=== PATIENT | male | born 1980 | race Two or more races ===

== ENCOUNTER 2024-12-26 15:55 | Emergency (ER) | payer MEDICAID, OTHER ==
[~2024-12-26] VITALS: Ht 180.3 cm; Wt 129.0 kg
[2024-12-26 16:00] VITALS: BP 138/94; PULSE 77; RESP 19; TEMP 98.1; O2SAT 95
--- NOTE | 2024-12-26 16:47 | ED.PDOC ---
History of Present Illness HPI Comments 44 year old male PMHx HTN, DM, HLD presents to the ED with a chief complaint of medication refill onset today (12/26/24). Patient states he had 1st PCP appointment, was given prescription for HTN, DM, HLD but was not prescribed Suboxone. He took last dose this morning 12mg. Patient's PCP will not prescribe until medical records are obtained. Denies fever, chills, nausea, vomiting, diarrhea, abdominal pain, chest pain, dizziness, headache. No other symptoms or modifying factors present at this time. Chief Complaint: Back Pain Time Seen by MD: 16:35 Reviewed Notes: Medications, Allergies Allergies: Coded Allergies: NO KNOWN ALLERGIES (Unverified , 12/26/24) Information Source: Patient Mode of Arrival: Ambulatory Severity: Moderate Timing: Hours Duration: Since onset Prehospital treatment: None Medication Refill: Ran out of Medication, For: Other (suboxone) Past Medical History PAST MEDICAL HISTORY: DM, High Lipids, HTN Surgical History: Denies all surgeries Family History Family History: Reviewed,noncontributory to illness, No family hx of Cancer, No family hx of DM, No family hx of Heart henry, No family hx of HTN, No family hx ofKidney henry, No family hx of Liver henry, No family hx of Lung henry, No family hx of Stroke Social History Smoker: Non-Smoker Alcohol: Denies ETOH Use Drugs: Denies Drug Use Lives In: Home Constitutional: denies: chills, diaphoresis, fatigue, fever, malaise, sweats, weakness, others EENTM: denies: blurred vision, double vision, ear bleeding, ear discharge, ear drainage, ear pain, ear ringing, eye pain, eye redness, hearing loss, mouth pain, mouth swelling, nasal discharge, nose bleeding, nose congestion, nose pain, photophobia, tearing, throat pain, throat swelling, voice changes, others Respiratory: denies: cough, hemoptysis, orthopnea, SOB at rest, shortness of breath, SOB with excertion, stridor, wheezing, others Cardiovascular: denies: chest pain, dizzy spells, diaphoresis, Dyspnea on exertion, edema, irregular heart beat, left arm pain, lightheadedness, palpitations, PND, syncope, others Gastrointestinal: denies: abdomen distended, abdominal pain, blood streaked bowels, constipated, diarrhea, dysphagia, difficulty swallowing, hematemesis, melena, nausea, poor appetite, poor fluid intake, rectal bleeding, rectal pain, vomiting, others Genitourinary: denies: burning, dysuria, flank pain, frequency, hematuria, incontinence, penile discharge, penile sore, pain, testicle pain, testicle swelling, urgency, others Neurological: denies: dizziness, fainting, headache, left sided numbness, left sided weakness, numbness, paresthesia, pre-existing deficit, right sided numbness, right sided weakness, seizure, speech problems, tingling, tremors, weakness, others Musculoskeletal: denies: back pain, gout, joint pain, joint swelling, muscle pain, muscle stiffness, neck pain, others Integumetry: denies: bruises, change in color, change in hair/nails, dryness, laceration, lesions, lumps, rash, wounds, others Allergic/Immunocompromised: denies: Difficulty Healing, Frequent Infections, Hives, Itching, others Hematologic/Lymphatic: denies: anemia, blood clots, easy bleeding, easy bruising, swollen glands, others Endocrine: denies: excessive hunger, excessive sweating, excessive thirst, excessive urination, flushing, intolerance to cold, intolerance to heat, unexplained weight gain, unexplained weight loss, others Psychiatric: denies: anxiety, bipolar disorder, depression, hopeless, panic disorder, schizophrenia, sleepless, suicidal, others All Other Systems: Reviewed and Negative Physical Exam General Appearance: No Apparent Distress, Normal HEENT: Normal ENT Inspection, Pharynx Normal, TMs Normal Neck: Full Range of Motion, Non-Tender, Normal, Normal Inspection Respiratory: Chest Non-Tender, Lungs Clear, No Accessory Muscle Use, No Respiratory Distress, Normal Breath Sounds Cardiovascular: No Edema, No JVD, No Murmur, No Gallop, Normal Peripheral Pulses, Regular Rate/Rhythm Breast Exam: Deferred Gastrointestinal: No Organomegaly, Non Tender, No Pulsatile Mass, Normal Bowel Sounds, Soft Genitalia: Deferred Pelvic: Deferred Rectal: Deferred Extremities: No calf tenderness, Normal capillary refill, Normal inspection, Normal range of motion, Non-tender, No pedal edema Musculoskeletal : Apperance: Normal Neurologic: Alert, tack maker II-XII nml as Tested, No Motor Deficits, Normal Affect, Normal Mood, No Sensory Deficits Cerebellar Function: Normal Reflexes: Normal Skin: Dry, Normal Color, Warm Lymphatic: No Adenopathy Was a procedure done? Was a procedure done?: No Differential Dx Considerations may include: Med refill X-Ray, Labs, Meds, VS Vital Signs Date Time Temp Pulse Resp B/P (MAP) Pulse Ox O2 Delivery O2 Flow Rate FiO2 12/26/24 16:00 98.1 77 19 138/94 95 98.1 X-Ray, Labs, Meds, VS Comment Imaging was reviewed by this provider, there is no obvious pathological or acute disease process. Pending radiology review Labs were reviewed by this provider, no abnormalities Vital signs reviewed by this provider, clinically stable Time of 1ST Reevaluation: 17:05 Reevaluation 1ST: Unchanged Patient Education/Counseling: Diagnosis, Treatment, Prognosis, Need For Follow Up (Follow up with PCP/pain management next available appointment) Family Education/Counseling: No Family Present SEPSIS Sepsis Screen Date sepsis recognized/suspect: Dec 26, 2024 Time Sepsis recognized/suspect: 1600 Recent Procedure: No On Antibiotic Therapy: No Respiratory Rate >20: No Heart Rate >90: No Temp<36 C (96.8 F) or >38.3 C: No SBP <90 or MAP <65 mmHG: No New Acute Mental Status Change: No Is the patient on CPAP, BIPAP,: No Vital Signs Date Time Temp Pulse Resp B/P (MAP) Pulse Ox O2 Delivery O2 Flow Rate FiO2 12/26/24 16:00 98.1 77 19 138/94 95 98.1 Departure 1 Departure Time of Disposition: 17:50 Impression: Primary Impression: Encounter for monitoring Suboxone maintenance therapy Disposition: HOME / SELF CARE / HOMELESS Condition: Fair e-Prescriptions Buprenorphine Hcl-Naloxone Hcl (Suboxone) 1 Mis Mis 1 STRIP SL DAILY, #30 STRIP Prov: JAQUELINE CHRISTIAN 12/26/24 Discharged With: Self Critical Care Note Critical Care Time?: No Stability Stability form required: No Heart Score Heart Score: Heart Score Response (Comments) Value History N/A 0 EKG N/A 0 Age N/A 0 Risk Factors N/A 0 Troponin N/A 0 Total 0 I personally scribed for JAQUELINE CHRISTIAN ([email or web address]) on 12/26/24 at 16:47. Electronically submitted by Gisel Prieto ([email or web address]). JAQUELINE CHRISTIAN [facility] Dec 26, 2024 16:47
[2024-12-26] MEDS ORDERED: BUPR8MIS SL (17:52)
== END 2024-12-26 18:10 | disposition home or self-care (01) ==
LOC: ER 15:55
DX: Z51.81 Encounter for therapeutic drug level monitoring (principal); E11.9 Type 2 diabetes mellitus without complications; E78.5 Hyperlipidemia, unspecified; I10 Essential (primary) hypertension; Z76.0 Encounter for issue of repeat prescription

== ENCOUNTER 2025-02-06 15:57 | Emergency (ER) | payer MEDICAID ==
[~2025-02-06] VITALS: Ht 180.3 cm; Wt 121.8 kg
[~2025-02-06 15:57] MED LIST: BUPR8MIS SL
[2025-02-06 16:03] VITALS: BP 140/90; PULSE 78; RESP 16; TEMP 98.2; O2SAT 97
--- NOTE | 2025-02-06 16:43 | ED.PDOC ---
History of Present Illness HPI Comments 44 y/o M, with PMHx of HTN, HLD, and DM, opiate addiction (on Suboxone therapy) presents to the ED for CC of med-refill. Patient reports, that he has been unable to refill his prescription on Suboxone d/t currently not having a Substance Abuse Provider. Patient relays, that he has set-up an appointment to meet with a provider tomorrow (02/07/25). Patient denies agitation, anxiety, restlessness, or mood changes. No other symptoms or modifying factors are present at this time. Chief Complaint: Medical Clearance Time Seen by MD: 16:30 Allergies: Coded Allergies: NO KNOWN ALLERGIES (Unverified , 12/26/24) Home Meds Active Scripts Buprenorphine Hcl-Naloxone Hcl (Suboxone) 1 Mis Mis, 1 STRIP SL DAILY for 7 Days, #7 STRIP Prov:ANTHONY CHRISTIAN MD 02/06/25 Buprenorphine Hcl-Naloxone Hcl (Suboxone) 1 Mis Mis, 1 STRIP SL DAILY, #30 STRIP Prov:JAQUELINE MONTERO 12/26/24 Mode of Arrival: Ambulatory Timing: Days Prehospital treatment: None Medication Refill: Ran out of Medication Past Medical History PAST MEDICAL HISTORY: DM, High Lipids, HTN Surgical History: Denies all surgeries Family History Family History: Reviewed,noncontributory to illness, No family hx of Cancer, No family hx of DM, No family hx of Heart henry, No family hx of HTN, No family hx ofKidney henry, No family hx of Liver henry, No family hx of Lung henry, No family hx of Stroke Social History Smoker: Non-Smoker Alcohol: Denies ETOH Use Drugs: Denies Drug Use, Other (Prior opiate abuse, on Suboxone) Lives In: Home Constitutional: denies: chills, diaphoresis, fatigue, fever, malaise, sweats, weakness, others EENTM: denies: blurred vision, double vision, ear bleeding, ear discharge, ear drainage, ear pain, ear ringing, eye pain, eye redness, hearing loss, mouth pain, mouth swelling, nasal discharge, nose bleeding, nose congestion, nose pain, photophobia, tearing, throat pain, throat swelling, voice changes, others Respiratory: denies: cough, hemoptysis, orthopnea, SOB at rest, shortness of breath, SOB with excertion, stridor, wheezing, others Cardiovascular: denies: chest pain, dizzy spells, diaphoresis, Dyspnea on exertion, edema, irregular heart beat, left arm pain, lightheadedness, palpitations, PND, syncope, others Gastrointestinal: denies: abdomen distended, abdominal pain, blood streaked bowels, constipated, diarrhea, dysphagia, difficulty swallowing, hematemesis, melena, nausea, poor appetite, poor fluid intake, rectal bleeding, rectal pain, vomiting, others Genitourinary: denies: burning, dysuria, flank pain, frequency, hematuria, incontinence, penile discharge, penile sore, pain, testicle pain, testicle swelling, urgency, others Neurological: denies: dizziness, fainting, headache, left sided numbness, left sided weakness, numbness, paresthesia, pre-existing deficit, right sided numbness, right sided weakness, seizure, speech problems, tingling, tremors, weakness, others Musculoskeletal: denies: back pain, gout, joint pain, joint swelling, muscle pain, muscle stiffness, neck pain, others Integumetry: denies: bruises, change in color, change in hair/nails, dryness, laceration, lesions, lumps, rash, wounds, others Allergic/Immunocompromised: denies: Difficulty Healing, Frequent Infections, Hives, Itching, others Hematologic/Lymphatic: denies: anemia, blood clots, easy bleeding, easy bruising, swollen glands, others Endocrine: denies: excessive hunger, excessive sweating, excessive thirst, excessive urination, flushing, intolerance to cold, intolerance to heat, unexpla ined weight gain, unexplained weight loss, others Psychiatric: denies: anxiety, bipolar disorder, depression, hopeless, panic disorder, schizophrenia, sleepless, suicidal, others All Other Systems: Reviewed and Negative Physical Exam General Appearance: No Apparent Distress, Normal HEENT: Normal ENT Inspection, Pharynx Normal Neck: Full Range of Motion, Non-Tender, Normal, Normal Inspection Respiratory: Chest Non-Tender, Lungs Clear, No Accessory Muscle Use, No Respiratory Distress, Normal Breath Sounds Cardiovascular: No Edema, No Murmur, No Gallop, Normal Peripheral Pulses, Regular Rate/Rhythm Breast Exam: Deferred Gastrointestinal: No Organomegaly, Non Tender, No Pulsatile Mass, Normal Bowel Sounds, Soft Genitalia: Deferred Pelvic: Deferred Rectal: Deferred Extremities: No calf tenderness, Normal capillary refill, Normal inspection, Normal range of motion, Non-tender, No pedal edema Musculoskeletal : Apperance: Normal Neurologic: Alert, tube repairer II-XII nml as Tested, No Motor Deficits, Normal Affect, Normal Mood, No Sensory Deficits Cerebellar Function: Normal Reflexes: Normal Skin: Dry, Normal Color, Warm Lymphatic: No Adenopathy Was a procedure done? Was a procedure done?: No Differential Dx Considerations may include: Med refill X-Ray, Labs, Meds, VS Vital Signs Date Time Temp Pulse Resp B/P (MAP) Pulse Ox O2 Delivery O2 Flow Rate FiO2 02/06/25 16:03 98.2 78 16 140/90 97 98.2 Time of 1ST Reevaluation: 17:00 Reevaluation 1ST: Unchanged Patient Education/Counseling: Diagnosis, Treatment Family Education/Counseling: No Family Present SEPSIS Sepsis Screen Date sepsis recognized/suspect: Feb 06, 2025 Time Sepsis recognized/suspect: 1604 Recent Procedure: No On Antibiotic Therapy: No Respiratory Rate >20: No Heart Rate >90: No Temp<36 C (96.8 F) or >38.3 C: No SBP <90 or MAP <65 mmHG: No New Acute Mental Status Change: No Is the patient on CPAP, BIPAP,: No Vital Signs Date Time Temp Pulse Resp B/P (MAP) Pulse Ox O2 Delivery O2 Flow Rate FiO2 02/06/25 16:03 98.2 78 16 140/90 97 98.2 Departure 1 Departure Time of Disposition: 16:58 (44-year-old male with past medical history of prior opiate abuse, currently on Suboxone therapy is here requesting another prescription refill. Patient does not see a substance abuse provider regularly, has previously been here requesting Suboxone refills. Explained to him that he needs to be enrolled in a substance abuse program so that he can get Suboxone refills regularly. Explained to him that because this is the emergency department we can only give him a short prescription. Prescription for Suboxone. Allegedly already has a scheduled outpatient follow up with the substance abuse provider. Patient displaying no signs of opiate withdrawal at this time. Stable for discharge for further outpatient management.) Impression: Primary Impression: Opiate dependence, continuous Additional Impressions: Encounter for monitoring Suboxone maintenance therapy Medication refill Disposition: HOME / SELF CARE / HOMELESS Condition: Stable Additional Instructions: You must follow up with a substance abuse clinic regularly so that you can have longstanding prescriptions for Suboxone. Because you were evaluated in emergency department today you were only given a prescription for 1 week of Suboxone. e-Prescriptions Buprenorphine Hcl-Naloxone Hcl (Suboxone) 1 Mis Mis 1 STRIP SL DAILY for 7 Days, #7 STRIP Prov: ANTHONY CHRISTIAN MD 02/06/25 Discharged With: Self Critical Care Note Critical Care Time?: No Stability Stability form required: No Heart Score Heart Score: Heart Score Response (Comments) Value History N/A 0 EKG N/A 0 Age N/A 0 Risk Factors N/A 0 Troponin N/A 0 Total 0 I personally scribed for ANTHONY CHRISTIAN MD ([email or web address]) on 02/06/25 at 16:43. Electronically submitted by Hermila Roldan ([email or web address]). ANTHONY CHRISTIAN MD Feb 06, 2025 16:43
[2025-02-06] MEDS ORDERED: BUPR8MIS SL (16:47)
== END 2025-02-06 19:39 | disposition home or self-care (01) ==
LOC: ER 15:57
DX: F11.20 Opioid dependence, uncomplicated (principal); E78.5 Hyperlipidemia, unspecified; E11.9 Type 2 diabetes mellitus without complications; I10 Essential (primary) hypertension; Z51.81 Encounter for therapeutic drug level monitoring; Z76.0 Encounter for issue of repeat prescription